=== PATIENT | male | born 1965 | race Caucasian/White ===

== ENCOUNTER 2018-02-14 17:43 | Emergency (ER) | payer OTHER ==
--- NOTE | 2018-02-14 18:30 | EDPHY ---
H & P Stated Complaint: slipped and fell at work around noon r hip pain/took ibuprofen Time Seen by Provider: 02/14/18 18:30 HPI/ROS: HPI CHIEF COMPLAINT: Slip and fall at work, right hip pain. HISTORY OF PRESENT ILLNESS: Patient very pleasant 55-year-old male, presents emergency room with right hip pain. Patient states that he was at work today around noon ED slipped on some water. States he landed on his right hip. Since then he has had ongoing right hip pain. Denies any chest pain or shortness of breath denies head strike or neck pain. Denies LOC. He is able to ambulate. He initially went over to the other hospital campus at [place] and was sent over here however took him awhile to get over here as he has no transportation. He now presents emergency room at 6:30 a.m. At night. His initial fall was at around noon. Complains of right lateral hip pain. Denies abdominal pain or back pain. Pain is located over the right lateral hip. Describes current pain 02/04. Took ibuprofen. Past Medical History: Denies significant medical history except for chronic low back pain Past Surgical History: Denies recent surgery Social History: Smokes tobacco, and marijuana. Occasional alcohol use. Lives in [place]. Works at a grocery store. Family History: Noncontributory ROS REVIEW OF SYSTEMS: A comprehensive 10 point review of systems is otherwise negative aside from elements mentioned in the history of present illness. Exam Constitutional nontoxic appearing triage nursing summary reviewed, vital signs reviewed, awake/alert. Eyes normal conjunctivae and sclera, EOMI, PERRLA. HENT normal inspection, atraumatic, moist mucus membranes, no epistaxis, neck supple/ no meningismus, no raccoon eyes. Respiratory clear to auscultation bilaterally, normal breath sounds, no respiratory distress, no wheezing. Cardiovascular rate normal, regular rhythm, no murmur, no edema, distal pulses normal. Gastrointestinal soft, non-tender, no rebound, no guarding, normal bowel sounds, no distension, no pulsatile mass. Genitourinary no CVA tenderness. Musculoskeletal right lateral hip: Mild tender palpation over the right lateral hip. No significant swelling or ecchymosis appreciated. No CVA tenderness on exam. No abdominal pain. no midline vertebral tenderness, full range of motion, no calf swelling, no tenderness of extremities, no meningismus , good pulses, neurovascularly intact. Skin pink, warm, & dry, no rash, skin atraumatic. Neurologic awake, alert and oriented x 3, AAOx3, moves all 4 extremities equally, motor intact, sensory intact, CN II-XII intact, normal cerebellar, normal vision, normal speech. Psychiatric normal mood/affect. Heme/Lymph/Immune no lymphadenopathy. Differential Diagnosis: Includes but is not limited to in a particular order right hip contusion, soft tissue injury, hip fracture. Medical Decision Making: Plan for the patient [place] p.o.. Ice pack and right hip x-ray. Re-evaluate. Re-evaluation: X-ray of the right hip: This reveals no evidence of acute fracture. Image interpreted by myself. X-ray read by Radiology negative for acute hip fracture. Source: Patient - Personal History Current Tetanus Diphtheria and Acellular Pertussis (TDAP): Unsure - Medical/Surgical History Hx Asthma: No Hx Chronic Respiratory Disease: No Hx Diabetes: No Hx Cardiac Disease: No Hx Renal Disease: No Hx Cirrhosis: No Hx Alcoholism: No Hx HIV/AIDS: No Hx Splenectomy or Spleen Trauma: No Other PMH: back problems - Social History Smoking Status: Current every day smoker Constitutional: Initial Vital Signs Temperature (C) 36.8 C 02/14/18 17:50 Heart Rate 113 H 02/14/18 17:50 Respiratory Rate 18 02/14/18 17:50 Blood Pressure 142/92 H 02/14/18 17:50 O2 Sat (%) 96 02/14/18 17:50 O2 Delivery Mode Room Air Allergies/Adverse Reactions: No Known Allergies Allergy (Unverified 02/14/18 17:50) Home Medications: Medication Instructions Recorded Ibuprofen [Motrin (*)] 800 mg PO Q6-8PRN #10 tab 02/14/18 Medical Decision Making - Diagnostics Imaging Results: Imaging Impressions Hip X-Ray 02/14/18 18:30 Impression: Right hip negative for fracture. - Data Points Medications Given: Discontinued Medications Hydrocodone Bitart/Acetaminophen ([place] 5/325) 1 tab PO EDNOW ONE Stop: 02/14/18 18:36 Last Admin: 02/14/18 18:42 Dose: 1 tab Departure - Departure Disposition: Home, Routine, Self-Care Clinical Impression: Contusion, hip Qualifiers: Encounter type: initial encounter Laterality: right Qualified Code(s): S70.01XA - Contusion of right hip, initial encounter Condition: Good Instructions: Hip Contusion (ED) Additional Instructions: 1. Recommend you ice your hip 2. Anti-inflammatory pain medicine for mild pain. 3. Take it easy over the next few days. 4. Follow up with your primary care doctor or Orthopedics. Referrals: NONE *PRIMARY CARE P,. [Primary Care Provider] - As per Instructions Klaus Priest MD [Medical Doctor] - As per Instructions Prescriptions: Ibuprofen [Motrin (*)] 800 mg PO Q6-8PRN #10 tab
[2018-02-14] MEDS ORDERED: HYDROCODONE/APAP 5/325 TAB PO ONE (18:35)
[2018-02-14 19:35] VITALS: BP 133/90
== END 2018-02-14 19:32 | disposition home or self-care (01) ==
LOC: EDBD 17:43 → MERGE 17:43
DX: S70.01XA Contusion of right hip, initial encounter (principal); F17.200 Nicotine dependence, unspecified, uncomplicated; W01.0XXA Fall on same level from slipping, tripping and stumbling without subsequent striking against object, initial encounter; Y99.0 Civilian activity done for income or pay; Y93.89 Activity, other specified